=== PATIENT | male | born 1945 | race Hispanic/Latino ===

== ENCOUNTER 2017-10-04 11:22 | Inpatient (IN) | payer MEDICARE, BC ==
[2017-10-04 11:37] VITALS: BMI 35.9
--- NOTE | 2017-10-04 12:36 | ED PDOC ---
HPI: Trauma/Fall - HPI Time Seen by Provider: 10/04/17 11:48 Chief Complaint (Nursing): Trauma Chief Complaint (Provider): Trauma History Per: Patient History/Exam Limitations: no limitations Onset/Duration Of Symptoms: Days (x today) Additional Complaint(s): Huy is a 72 year old male who presents to the emergency department for medical evaluation s/p falling when walking to drug store. States he does not recall event of the fall, but remembers everything else. Patient lives with where found shoes on the living area and looked home and saw blood in the eyebrow area. Has bump on his back of his head. Denies any antecedent, headache, blurry vision, speech difficulty, focal difficulty upper and lower extremity, chest pain or shortness of breath. PMD: Provider TBD NIHSS Stroke Scale - Date/Time Evaluation Performed When Was NIHSS Performed: Baseline - How Severe is the Stroke Level of Consciousness: 0=Alert LOC to Questions: 0=Both comments correct Best Gaze: 0=Normal Visual: 0=No visual loss Facial: 0=Normal Motor Arm - Left: 0=No drift Motor Arm - Right: 0=No drift Motor Leg - Left: 0=No drift Motor Leg - Right: 0=No drift Limb Ataxia: 0=Absent Sensory: 0=Normal Best Language: 0=No aphasia Dysarthia: 0=Normal articulation Extinction & Inattention (Neglect): 0=Normal, no object Severity Of Stroke: 0 = No Stroke Past Medical History Reviewed: Historical Data, Nursing Documentation, Vital Signs Vital Signs: Last Vital Signs Temp 97.7 F 10/04/17 11:38 Pulse 71 10/04/17 11:38 Resp 20 10/04/17 11:38 BP 139/75 10/04/17 11:38 Pulse Ox 96 10/04/17 11:38 - Medical History PMH: HTN, Hypercholesterolemia, Hyperlipidemia - Surgical History Surgical History: CABG - Family History Family History: States: No Known Family Hx - Home Medications Home Medications: Ambulatory Orders Medication Instructions Recorded Aspirin [Ecotrin] 81 mg PO DAILY 10/04/17 Carvedilol [Coreg] 25 mg PO DAILY 10/04/17 Clopidogrel [Plavix] 75 mg PO DAILY 10/04/17 Rosuvastatin Calcium [Crestor] 10 mg PO DAILY 10/04/17 amLODIPine [Norvasc] 5 mg PO DAILY 10/04/17 - Allergies Allergies/Adverse Reactions: Allergies Allergy/AdvReac Type Severity Reaction Status Date / Time No Known Allergies Allergy Verified 10/04/17 11:52 Review of Systems ROS Statement: Except As Marked, All Systems Reviewed And Found Negative Skin: Positive for: Other (Abrasion on forehead between eyebrow, small hematoma posterior in the occipital scalp) Physical Exam - Reviewed Nursing Documentation Reviewed: Yes Vital Signs Reviewed: Yes - Physical Exam Eye Exam: Positive for: PERRL Neck: Positive for: Supple Cardiovascular/Chest: Positive for: Regular Rate, Rhythm (Normal s1 and s2) Respiratory: Positive for: Normal Breath Sounds. Negative for: Respiratory Distress Gastrointestinal/Abdominal: Positive for: Soft, Distended. Negative for: Tenderness Extremity: Positive for: Normal ROM (FROM) Neurologic/Psych: Positive for: Alert, Oriented, Other (Speech is normal). Negative for: Motor/Sensory Deficits - Laboratory Results Result Diagrams: 10/04/17 12:50 10/04/17 12:50 - ECG O2 Sat by Pulse Oximetry: 96 (RA) Medical Decision Making Medical Decision Making: Time: 12:11 Impression(s): Syncope, Coronary Artery Disease, High Cholesterol Plan: - CT Head without Contrast - EKG - Alcohol Serum - CMP - Troponin I - CBC - Partial Thromboplastin Time - Prothrombin Time - Chest X-Ray - Glucose, Blood, POC Will be admitted for observation due to his extensive past medical history Scribe Attestation: Documented by Emmanuel Romero, acting as a scribe for Cyndee Mata MD Provider Scribe Attestation: All medical record entries made by the Scribe were at my direction and personally dictated by me. I have reviewed the chart and agree that the record accurately reflects my personal performance of the history, physical exam, medical decision making, and the department course for this patient. I have also personally directed, reviewed, and agree with the discharge instructions and disposition. 2.30p - patient has been stable. Given the history of multiple coronary stent, hypertension, and hyperlipidemia, patient should be admitted for further evaluation. Disposition - Clinical Impression Clinical Impression: Syncope - Patient ED Disposition Is Patient to be Admitted: Yes Doctor Will See Patient In The: Hospital Counseled Patient/Family Regarding: Diagnosis, Need For Followup - Disposition Disposition: Transfer of Care Disposition Time: 14:15 Condition: STABLE Forms: [employer] (Thai) - Pt Status Changed To: Hospital Disposition Of: Observation - POA Present On Arrival: None
[2017-10-04 13:04] LABS: BASO % 0.5 % (0.0-2.0); EOS # 0.1 K/uL (0.0-0.7); EOS % 1.5 % (0.0-4.0); HEMOGLOBIN 16.4 g/dL (12.0-18.0); LYMPH # 1.7 K/uL (1.0-4.3); MEAN CELL VOLUME 87.7 fl (80.0-94.0); MEAN CORPUSCULAR HEMOGLOBIN 28.8 pg (27.0-31.0); MEAN CORPUSCULAR HGB CONC 32.8 g/dL (33.0-37.0); MEAN PLATELET VOLUME 8.8 fl (7.2-11.7); MONO # 0.8 K/uL (0.0-0.8); MONO % 9.4 % (0.0-10.0); NEUT # 6.3 K/uL (1.8-7.0); NEUT % 69.6 % (50.0-75.0); NRBC % 0.1 % (0.0-0.0); RBC 5.68 Mil/uL (4.40-5.90); RED CELL DISTRIBUTION WIDTH 15.1 % (11.5-14.5)
[2017-10-04 13:13] LABS: PARTIAL THROMBOPLASTIN TIME 33.3 Seconds (25.6-37.1)
--- NOTE | 2017-10-04 13:13 | CT ---
PROCEDURE: CT HEAD WITHOUT CONTRAST. HISTORY: syncope COMPARISON: None available. TECHNIQUE: Axial computed tomography images were obtained through the head/brain without intravenous contrast. Radiation dose: Total exam DLP = 1207 mGy-cm. This CT exam was performed using one or more of the following dose reduction techniques: Automated exposure control, adjustment of the mA and/or kV according to patient size, and/or use of iterative reconstruction technique. FINDINGS: HEMORRHAGE: No intracranial hemorrhage BRAIN: No mass effect or edema. No atrophy or chronic microvascular ischemic changes. VENTRICLES: Unremarkable. No hydrocephalus. CALVARIUM: Unremarkable. PARANASAL SINUSES: Unremarkable as visualized. No significant inflammatory changes. MASTOID AIR CELLS: Unremarkable as visualized. No inflammatory changes. OTHER FINDINGS: At the vertex, 19 x 16 x 8 mm well-circumscribed slightly hyperdense focus in the scalp is suggested -Hounsfield units are between 40 and 50 - residual hematoma here is 1 consideration. Other soft tissue mass is not excluded. No marked inflammation or induration of the surrounding subcutaneous fat appreciated. Correlate clinically with any prior trauma and correlate with physical exam here Atherosclerotic vascular calcifications vertebrobasilar and supraclinoid internal carotid arteries IMPRESSION: No intracranial hemorrhage or mass effect. Vertex 19 x 16 x 8 mm well-circumscribed slightly hyperdense focus in the scalp is suggested -Hounsfield units are between 40 and 50 - residual hematoma here is 1 consideration. Other soft tissue mass is not excluded. No marked inflammation or induration of the surrounding subcutaneous fat appreciated. Correlate clinically with any prior trauma and correlate with physical exam here
[2017-10-04 13:16] LABS: ALB/GLOB RATIO 1.5 (1.0-2.1); ALBUMIN 4.6 g/dL (3.5-5.0); ALT/SGPT 39 U/L (21-72); AST/SGOT 24 U/L (17-59); BLOOD UREA NITROGEN 19 mg/dl (9-20); CALCIUM 9.5 mg/dL (8.4-10.2); GFR AFRICAN-AMERICAN > 60; GFR NON-AFRICAN AMERICAN > 60
--- NOTE | 2017-10-04 13:50 | RAD ---
PROCEDURE: CHEST RADIOGRAPH, 1 VIEW HISTORY: Syncope COMPARISON: None available. FINDINGS: LUNGS: The lungs are well inflated. There is right basilar atelectasis. No focal consolidation. PLEURA: No pneumothorax or pleural fluid seen. CARDIOVASCULAR: Normal. OSSEOUS STRUCTURES: No significant abnormalities. VISUALIZED UPPER ABDOMEN: Normal. OTHER FINDINGS: None. IMPRESSION: No active pulmonary disease.
--- NOTE | 2017-10-05 08:36 | CARD ---
APPROVED REPORT EKG Measurement Heart [id number] <Conclusion> Normal sinus rhythm Minimal voltage criteria for LVH, may be normal variant Borderline ECG
[2017-10-05] MEDS ORDERED: Patient's Own Med (Rosuvastatin Calcium [Crestor] 10 MG) PO SCH (09:00)
--- NOTE | 2017-10-05 09:04 | CP.PCM.HP ---
History of Present Illness - History of Present Illness History of Present Illness: 72 yr old M presented to ED with complaint of a "bump to his head" after he slipped and fell on ice when walking to the drug store. Patient reports that when he arrived at home he remembered the events surrounding the fall but not actually falling, his became concerned and so he came to the ED. PMHx includes CAD s/p CABG and 1 stent 10 yrs ago, HTN, HLD and hypercholesterolemia. Denies chest pain, headache, dizziness, syncope, weakness , nausea, vomiting or disequilibrium. PMD: Dr. Caldera PMHx: CAD s/p CABG and 1 stent 10 yrs ago, HTN, HLD and hypercholesterolemia SurgHx: CABG -1 stent FMHx: noncontributory SocHx: denies smoking, alcohol or drugs Medications: see medication reconciliation Allergies: NKDA Present on Admission - Present on Admission Any Indicators Present on Admission: No History of DVT/PE: No History of Uncontrolled Diabetes: No Urinary Catheter: No Decubitus Ulcer Present: No History Surgical Site Infection Following: None Review of Systems - Review of Systems All systems: reviewed and no additional remarkable complaints except (for what is mentioned in the HPI) - Constitutional Constitutional: absent: Chills, Headache - EENT Eyes: absent: Blurred Vision, Change in Vision Ears: absent: Disequilibrium, Dizziness Nose/Mouth/Throat: absent: Nasal Congestion, Nasal Discharge - Cardiovascular Cardiovascular: absent: Chest Pain, Palpitations - Respiratory Respiratory: absent: Cough, Hemoptysis - Gastrointestinal Gastrointestinal: absent: Abdominal Pain, Diarrhea - Genitourinary Genitourinary: absent: Difficulty Urinating, Dysuria - Musculoskeletal Musculoskeletal: absent: Arthralgias, Myalgias - Neurological Neurological: absent: Disequilibrium, Dizziness, Weakness - Hematologic/Lymphatic Hematologic: absent: Easy Bleeding, Easy Bruising Past Patient History - Past Medical History & Family History Past Medical History?: Yes - Past Social History Smoking Status: Never Smoked - CARDIAC Hx Hypercholesterolemia: Yes Hx Hypertension: Yes - PULMONARY Hx Respiratory Disorders: No - NEUROLOGICAL Hx Neurological Disorder: No - MUSCULOSKELETAL/RHEUMATOLOGICAL Hx Falls: No - PSYCHIATRIC Hx Substance Use: No - SURGICAL HISTORY Hx Coronary Artery Bypass Graft: Yes - ANESTHESIA Hx Anesthesia: Yes Hx Anesthesia Reactions: No Meds Allergies/Adverse Reactions: Allergies Allergy/AdvReac Type Severity Reaction Status Date / Time No Known Allergies Allergy Verified 10/04/17 11:52 Physical Exam - Constitutional Appears: No Acute Distress - Head Exam Additional comments: left occipital scalp swelling and bruising 2 x 3 cm-nontender, no laceration, no discharge; abrasion at glabella - Eye Exam Eye Exam: EOMI - ENT Exam ENT Exam: Mucous Membranes Moist - Neck Exam Neck exam: Positive for: Full Rom. Negative for: Lymphadenopathy - Respiratory Exam Respiratory Exam: Clear to Auscultation Bilateral, NORMAL BREATHING PATTERN - Cardiovascular Exam Cardiovascular Exam: REGULAR RHYTHM, +S1, +S2 - GI/Abdominal Exam GI & Abdominal Exam: Normal Bowel Sounds, Soft (obese) - Extremities Exam Extremities exam: Positive for: full ROM. Negative for: pedal edema - Neurological Exam Neurological exam: Alert, CN II-XII Intact, Oriented x3 - Psychiatric Exam Psychiatric exam: Normal Affect, Normal Mood - Skin Skin Exam: Dry, Intact, Warm Results - Vital Signs Recent Vital Signs: Last Vital Signs Temp 98 F 10/05/17 05:00 Pulse 71 10/05/17 05:00 Resp 18 10/05/17 05:00 BP 155/91 H 10/05/17 05:00 Pulse Ox 94 L 10/05/17 05:00 - Labs Result Diagrams: 10/04/17 12:50 10/04/17 12:50 Labs: Laboratory Results - last 24 hr 10/04/17 10/04/17 10/04/17 12:27 12:50 12:50 WBC 9.0 RBC 5.68 Hgb 16.4 Hct 49.8 MCV 87.7 MCH 28.8 MCHC 32.8 L RDW 15.1 H Plt Count 129 L MPV 8.8 Neut % (Auto) 69.6 Lymph % (Auto) 19.0 L Knott % (Auto) 9.4 Eos % (Auto) 1.5 Baso % (Auto) 0.5 Neut # 6.3 Lymph # 1.7 Knott # 0.8 Eos # 0.1 Baso # 0.0 PT INR APTT Sodium 141 Potassium 4.3 Chloride 108 H Carbon Dioxide 23 Anion Gap 14 BUN 19 Creatinine 0.9 Est GFR ( Amer) > 60 Est GFR (Non-Af Amer) > 60 POC Glucose (mg/dL) 111 H Random Glucose 122 H Calcium 9.5 Total Bilirubin 0.7 AST 24 ALT 39 Alkaline Phosphatase 67 Troponin I < 0.0120 Total Protein 7.7 Albumin 4.6 Globulin 3.1 Albumin/Globulin Ratio 1.5 Alcohol, Quantitative < 10 10/04/17 12:50 WBC RBC Hgb Hct MCV MCH MCHC RDW Plt Count MPV Neut % (Auto) Lymph % (Auto) Knott % (Auto) Eos % (Auto) Baso % (Auto) Neut # Lymph # Knott # Eos # Baso # PT 11.0 INR 1.0 APTT 33.3 Sodium Potassium Chloride Carbon Dioxide Anion Gap BUN Creatinine Est GFR ( Amer) Est GFR (Non-Af Amer) POC Glucose (mg/dL) Random Glucose Calcium Total Bilirubin AST ALT Alkaline Phosphatase Troponin I Total Protein Albumin Globulin Albumin/Globulin Ratio Alcohol, Quantitative Assessment & Plan - Assessment and Plan (Free Text) Assessment: 72 yr old M admitted for head trauma s/p fall after slipping on ice. 1. Head trauma Plan: 72 yr old M admitted for head trauma s/p fall after slipping on ice with inability to recall event of mechanical fall. 1. Head trauma -acute likely secondary to s/p mechanical fall vs syncope -CT head: no intracranial hemorrhage or mass effect, possible residual hematoma at vertex -Brain MRI: trace temporo-occipital subdural hematoma, no acute or subacute infarction, mild biparietal bicipital scalp/subgleal hematoma noted, left greater than right -Head MRA: unremarkable -admit to telemetry, neuro checks -Neurosurgery consult appreciated: will follow recommendations: hold plavix and ASA, repeat CT head in AM -cardiology consult appreciated: will follow recommendations 2. HTN -chronic, controlled -continue home medications 3. DVT prophylaxis -SCD's for now, pt is s/o mechanical fall - Date & Time Date: 10/05/17 Time: 10:10
--- NOTE | 2017-10-05 10:14 | CP.PCM.CON ---
History of Present Illness - History of Present Illness History of Present Illness: THE PATIENT IS A 72 YEAR OLD MALE WHO WAS ADMITTED AFTER SLIPPING ON THE ICE AND HITTING HIS HEAD. HE HAD A HISTORY OF CAD WHEN HE HAD CHEST PAIN ABOUT 10 YEARS AGO AND HAD AN ABNORMAL STRESS TEST. HE THEN HAD A CARDIAC CATH AND A CORONARY STENT INSERTION. HE HAS BEEN CHEST PAIN FREE AND STABLE FROM THE CARDIAC VIEWPOINT SINCE THEN WITH A NUCLEAR STRESS TEST YEARLY AND THEY HAVE BEEN NEGATIVE FOR ISCHEMIA. CARDIOLOGY WAS ASKED TO SEE HIM ON THIS ADMISSION. HE DENIES CHEST PAIN, PALPITATIONS OR SOB PRIOR TO THE FALL. HE COULDN'T REMEMBER EXACTLY WHAT HAPPENED AT FIRST BUT NOW CLEARLY STATES THAT HE DID NOT FALL BECAUSE OF A LOC, BUT INSTEAD FELL BECAUSE OF SLIPPING ON THE ICE. Past Patient History - Past Medical History & Family History Past Medical History?: Yes - Past Social History Smoking Status: Never Smoked - CARDIAC Hx Hypercholesterolemia: Yes Hx Hypertension: Yes - PULMONARY Hx Respiratory Disorders: No - NEUROLOGICAL Hx Neurological Disorder: No - MUSCULOSKELETAL/RHEUMATOLOGICAL Hx Falls: No - PSYCHIATRIC Hx Substance Use: No - SURGICAL HISTORY Hx Coronary Artery Bypass Graft: Yes - ANESTHESIA Hx Anesthesia: Yes Hx Anesthesia Reactions: No Meds Allergies/Adverse Reactions: Allergies Allergy/AdvReac Type Severity Reaction Status Date / Time No Known Allergies Allergy Verified 10/04/17 11:52 - Medications Medications: Current Medications Amlodipine Besylate (Norvasc) 5 mg PO DAILY GATO Aspirin (Ecotrin) 81 mg PO DAILY GATO Atorvastatin Calcium (Lipitor) 20 mg PO DAILY GATO Carvedilol (Coreg) 25 mg PO DAILY GATO Clopidogrel Bisulfate (Plavix) 75 mg PO DAILY GATO Physical Exam - Respiratory Exam Respiratory Exam: Clear to Auscultation Bilateral - Cardiovascular Exam Cardiovascular Exam: REGULAR RHYTHM, +S1, +S2 - Extremities Exam Additional comments: NO SIGNIFICANT LE EDEMA - Additional Findings Additional findings: EKG NSR EKG MONITORING NSR WITHOUT ECTOPY TROPONIN NEGATIVE CT OF HEAD REPORT REVIEWED Results - Vital Signs Recent Vital Signs: Last Vital Signs Temp 97.1 F L 10/05/17 08:00 Pulse 76 10/05/17 08:00 Resp 18 10/05/17 08:00 BP 152/84 H 10/05/17 08:00 Pulse Ox 95 10/05/17 08:00 - Labs Result Diagrams: 10/04/17 12:50 10/04/17 12:50 Labs: Laboratory Results - last 24 hr 10/04/17 10/04/17 10/04/17 12:27 12:50 12:50 WBC 9.0 RBC 5.68 Hgb 16.4 Hct 49.8 MCV 87.7 MCH 28.8 MCHC 32.8 L RDW 15.1 H Plt Count 129 L MPV 8.8 Neut % (Auto) 69.6 Lymph % (Auto) 19.0 L Hendry % (Auto) 9.4 Eos % (Auto) 1.5 Baso % (Auto) 0.5 Neut # 6.3 Lymph # 1.7 Hendry # 0.8 Eos # 0.1 Baso # 0.0 PT INR APTT Sodium 141 Potassium 4.3 Chloride 108 H Carbon Dioxide 23 Anion Gap 14 BUN 19 Creatinine 0.9 Est GFR ( Amer) > 60 Est GFR (Non-Af Amer) > 60 POC Glucose (mg/dL) 111 H Random Glucose 122 H Calcium 9.5 Total Bilirubin 0.7 AST 24 ALT 39 Alkaline Phosphatase 67 Troponin I < 0.0120 Total Protein 7.7 Albumin 4.6 Globulin 3.1 Albumin/Globulin Ratio 1.5 Alcohol, Quantitative < 10 10/04/17 12:50 WBC RBC Hgb Hct MCV MCH MCHC RDW Plt Count MPV Neut % (Auto) Lymph % (Auto) Hendry % (Auto) Eos % (Auto) Baso % (Auto) Neut # Lymph # Hendry # Eos # Baso # PT 11.0 INR 1.0 APTT 33.3 Sodium Potassium Chloride Carbon Dioxide Anion Gap BUN Creatinine Est GFR ( Amer) Est GFR (Non-Af Amer) POC Glucose (mg/dL) Random Glucose Calcium Total Bilirubin AST ALT Alkaline Phosphatase Troponin I Total Protein Albumin Globulin Albumin/Globulin Ratio Alcohol, Quantitative Assessment & Plan - Assessment and Plan (Free Text) Assessment: FALL FROM SLIPPING ON THE ICE CAD BUT WITH STABLE CARDIAC STATUS AT THE PRESENT TIME Plan: THE PATIENT WAS ADMITTED TO 4N ON TELEMETRY CONTINUE CARVEDILOL, AMLODIPINE, ATORVASTATIN, ASPIRIN AND CLOPIDOGREL THE PATIENT CAN BE DISCHARGED FROM THE CARDIAC VIEWPOINT-HE HAD AN APPOINTMENT SCHEDULED WITH ME IN THE OFFICE THIS AFTERNOON AND HE WAS TOLD TO RESCHEDULE AN APPOINTMENT WITH ONE TO TWO WEEKS TO SEE HOW HE IS DOING
--- NOTE | 2017-10-05 11:51 | MRI ---
PROCEDURE: MRI BRAIN WITHOUT CONTRAST HISTORY: s/p fall COMPARISON: Head CT without contrast dated 10/04/2017. TECHNIQUE: Multiplanar, multisequence MR images of the brain were obtained without intravenous contrast enhancement. FINDINGS: HEMORRHAGE: Trace left temporooccipital subdural hematomas question in the lateral periphery. This is best seen in the FLAIR acquisition. No parenchymal hemorrhage is identified and there is no large hemorrhagic collection throughout the intracranial space. DWI: No evidence of an acute or early subacute infarction. BRAIN PARENCHYMA: Good corticomedullary differentiation is seen. Diffuse expansion of the ventriculosulcal and cisternal spaces is appreciated with white matter lucency compatible with diffuse cerebral atrophy and chronic microangiopathy. The midline brain anatomy appears grossly nonfocal as imaged. There is no mass effect throughout. VENTRICLES: Unremarkable. No hydrocephalus. CRANIUM: Unremarkable. Head there however the, there is a mild biparietal box simple subgaleal/scalp hematoma identified, left greater than right. ORBITS: Grossly unremarkable. PARANASAL SINUSES/MASTOIDS: Clear VASCULAR SYSTEM: Skull base flow voids intact. OTHER FINDINGS: None. IMPRESSION: Trace left temporooccipital subdural hematoma. No acute or subacute brain infarction identified. Mild age related neuro degenerative changes are identified. Follow-up head CT is advised. Mild biparietal bicipital scalp/subgaleal hematoma noted, left greater than right.
--- NOTE | 2017-10-05 11:55 | MRI ---
PROCEDURE: Magnetic Resonance Angiography Brain HISTORY: s/p fall COMPARISON: None available. TECHNIQUE: 3D time of flight MR angiography of the intracranial arteries was performed. Rotating maximum intensity projection images were generated. FINDINGS: INTERNAL CAROTID ARTERIES: Unremarkable. The skull base, petrous, cavernous and supraclinoid segments are bilaterally widely patient. ANTERIOR CEREBRAL ARTERIES: Unremarkable. A1 and A2 segments are widely patent. Smaller distal branches unremarkable, as visualized. MIDDLE CEREBRAL ARTERIES: Unremarkable. M1 and M2 segments are widely patent. Perisylvian branches grossly symmetric. POSTERIOR CIRCULATION: Basilar Artery: Unremarkable. Distal Vertebral Arteries: Unremarkable. Posterior Cerebral Arteries: A small infundibulum is noted at the proximal right posterior artery related to the junction with the right posterior communicating artery. There is a mild stenosis of the proximal left [employer] which is over accentuated in the 3D reconstructed datasets appearing severe there but only mild in the source images. Posterior Inferior Cerebellar Arteries: Unremarkable. ANEURYSM/ VASCULAR MALFORMATIONS: None identified. OTHER FINDINGS: None. IMPRESSION: Unremarkable MR angiography of the brain.
--- NOTE | 2017-10-05 12:39 | US ---
PROCEDURE: Duplex ultrasound of the carotid and vertebral arteries. HISTORY: syncope COMPARISON: None available. TECHNIQUE: Grayscale and duplex Doppler evaluation of the cervical carotid and vertebral arteries were performed. The common carotid, carotid bifurcations and cervical ICA and proximal ECA were evaluated. The vertebral arteries were evaluated for gross patency and direction. FINDINGS: RIGHT CAROTID ARTERIES: Common Carotid Artery: Calcific plaque. Maximal flow velocity of 81.6 cm/s. Carotid Bifurcation: Calcific plaque. Internal Carotid Artery:Calcific plaque. Maximal flow velocity of 126.9 cm/s. External Carotid Artery (proximal branches): Calcific plaque. Maximal flow velocity of 120.8 cm/s. ICA/CCA Ratio: 1.6 LEFT CAROTID ARTERIES: Common Carotid Artery: Calcific plaque. Maximal flow velocity of 73.7 cm/s. Carotid Bifurcation: Calcific plaque. Internal Carotid Artery:Calcific plaque. Maximal flow velocity of 122.2 cm/s. External Carotid Artery (proximal branches): Calcific plaque. Maximal flow velocity of 140.8 cm/s. ICA/CCA Ratio: 1.7 VERTEBRAL ARTERIES: Right Vertebral Artery: Patent. Antegrade flow. Left Vertebral Artery: Patent. Antegrade flow. OTHER FINDINGS: None. IMPRESSION: No hemodynamically significant stenosis of the internal carotid arteries, bilaterally.
--- NOTE | 2017-10-05 20:15 | CARD ---
APPROVED REPORT EXAM: Two-dimensional and M-mode echocardiogram with Doppler and color Doppler. Other Information Quality : FairRhythm : INDICATION Syncope 2D DIMENSIONS IVSd1.79 (0.7-1.1cm)LVDd4.07 (3.9-5.9cm) LVOT Diameter2.00 (1.8-2.4cm)PWd0.98 (0.7-1.1cm) IVSs2.09 (0.8-1.2cm)LVDs3.06 (2.5-4.0cm) FS (%) 24.9 %PWs1.49 (0.8-1.2cm) LVEF (%)45.0 (>50%) M-Mode DIMENSIONS Left Atrium (MM)4.42 (2.5-4.0cm)Aortic Root3.02 (2.2-3.7cm) Aortic Cusp Exc.1.40 (1.5-2.0cm) Aortic Valve AoV Peak Lyknvecr037.3cm/sAoV VTI59.2cmAO Peak GR.15mmHg LVOT Peak Wuyyzymw15.0cm/sLVOT VTI21.59cmAO Mean GR.19mmHg Mitral Valve MV E Syevcumx30.3cm/sMV A Knntiuxi48.4cm/sE/A ratio0.8 TDI Lateral E' Peak V8.64cm/sMedial E' Peak V7.41cm/sE/Lateral E'9.4 E/Medial E'11.0 LEFT VENTRICLE The left ventricle is normal in size. There is normal left ventricular wall thickness. The left ventricular function is normal. The left ventricular ejection fraction is - 60%. There is normal LV segmental wall motion. Transmitral Doppler flow pattern is Grade I-abnormal relaxation pattern. No left ventricle thrombus noted on this study. There is no ventricular septal defect visualized. There is no left ventricular aneurysm. There is no mass noted in the left ventricle. RIGHT VENTRICLE The right ventricle is normal size. There is normal right ventricular wall thickness. The right ventricular systolic function is normal. ATRIA The left atrium is mildly dilated. There is no thrombus suspected in the left atrium. The right atrium size is normal. The interatrial septum is intact with no evidence for an atrial septal defect. AORTIC VALVE The aortic valve is moderately calcified. No aortic regurgitation is present. There is mild to moderate valvular aortic stenosis visually. Calculated aortic valve area is 1.10 cm2 with maximum pressure gradient of 28 mmHg and mean pressure gradient of 19.6 mmHg. MITRAL VALVE The mitral valve is normal in structure. Mitral annular calcification is mild. There is no evidence of mitral valve prolapse. There is no mitral valve stenosis. Mitral regurgitation is trace. TRICUSPID VALVE The tricuspid valve is normal in structure. There is no tricuspid valve regurgitation noted. There is no tricuspid valve prolapse or vegetation. There is no tricuspid valve stenosis. PULMONIC VALVE The pulmonary valve is normal in structure. There is no pulmonic valvular regurgitation. GREAT VESSELS The aortic root is normal in size. The IVC was not well visualized. PERICARDIAL EFFUSION The pericardium appears normal. There is no pleural effusion. <Conclusion> The study is only of fair quality. The left ventricle is normal in size and wall thickness. The left ventricular function is normal. The left ventricular ejection fraction is - 60%. The left atrium is mildly dilated. The aortic valve is - moderately calcified and appears mildly to moderately stenotic visually. The mitral valve and tricuspid valves are normal. There is trace mitral regurgitation.
--- NOTE | 2017-10-06 08:08 | CP.PCM.CON ---
History of Present Illness - History of Present Illness History of Present Illness: NO NEW COMPLAINTS Past Patient History - Past Medical History & Family History Past Medical History?: Yes - Past Social History Smoking Status: Never Smoked - CARDIAC Hx Hypercholesterolemia: Yes Hx Hypertension: Yes - PULMONARY Hx Respiratory Disorders: No - NEUROLOGICAL Hx Neurological Disorder: No - MUSCULOSKELETAL/RHEUMATOLOGICAL Hx Falls: No - PSYCHIATRIC Hx Substance Use: No - SURGICAL HISTORY Hx Coronary Artery Bypass Graft: Yes - ANESTHESIA Hx Anesthesia: Yes Hx Anesthesia Reactions: No Meds Allergies/Adverse Reactions: Allergies Allergy/AdvReac Type Severity Reaction Status Date / Time No Known Allergies Allergy Verified 10/04/17 11:52 - Medications Medications: Current Medications Amlodipine Besylate (Norvasc) 5 mg PO DAILY [facility] Last Admin: 10/05/17 13:41 Dose: 5 mg Atorvastatin Calcium (Lipitor) 20 mg PO DAILY [facility] Last Admin: 10/05/17 14:28 Dose: 20 mg Carvedilol (Coreg) 25 mg PO DAILY [facility] Last Admin: 10/05/17 14:28 Dose: 25 mg Physical Exam - Respiratory Exam Respiratory Exam: Clear to Auscultation Bilateral - Cardiovascular Exam Cardiovascular Exam: REGULAR RHYTHM, +S1, +S2 - Additional Findings Additional findings: 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 WITH TRACE SUBDURAL HEMATOMA BRAIN MRI AND CAROTID US WITHOUT ANY SIGNIFICANT LESIONS ECHOCARDIOGRAM, GOOD LV SYSTOLIC FUNCTION, AV CALCIFICATION WITH MILD TO MODERATE VISUALLY PATIENT SEEN BY NEUROLOGY YESTERDAY Results - Vital Signs Recent Vital Signs: Last Vital Signs Temp 97.4 F L 10/06/17 05:59 Pulse 68 10/06/17 05:59 Resp 18 10/06/17 05:59 BP 130/79 10/06/17 05:59 Pulse Ox 97 10/06/17 05:59 - Labs Result Diagrams: 10/04/17 12:50 10/04/17 12:50 Labs: Laboratory Results - last 24 hr 10/05/17 10/05/17 09:15 14:51 Troponin I < 0.0120 < 0.0120 Assessment & Plan - Assessment and Plan (Free Text) Assessment: FALL WITH HEAD TRAUMA AND PROBABLE CONCUSSION AND SMALL SUBDURAL HEMATOMA CAD HISTORY HYPERTENSION MILD TO MODERATE Plan: CONTINUE CARVEDILOL, AMLODIPINE AND ATORVASTATIN HOLD ASPIRIN AND CLOPIDOGREL FOR NOW DUE TO HEAD TRAUMA WITH SUBDURAL HEMATOMA FOR REPEAT CAT SCAN TODAY OK TO DISCHARGE PATIENT FROM CARDIAC [facility]-PATIENT AND INSTRUCTED TO CALL MY OFFICE FOR AN APPOINTMENT IN ABOUT TWO WEEKS
[2017-10-06 08:39] VITALS: BP 148/83; PULSE 71; RESP 20; TEMP 97.3; O2SAT 95
--- NOTE | 2017-10-06 12:12 | CP.PCM.PN ---
<Anthony Rod - Last Filed: 10/06/17 12:05> Subjective - Date & Time of Evaluation Date of Evaluation: 10/06/17 Time of Evaluation: 12:05 - Subjective Subjective: Mr. Brownlee was seen and examined at the bedside. He is alert, oriented in all spheres. He denies any headache, dizziness, blurred vision, lightheadedness, nausea, or vomiting. He has a healing abrasion in between his eyebrows. He is able to answer all questions appropriately and follow simple commands. He is ambulating around his room and within the nursing unit with steady gait. MRi of the brain showed trace te,pooccipital subdural hematoma. No acute or subacute brain infarction identified. Mild age related neurodegenerative changes identified. Mild biparietal biciptal scalp/subgaleal hematoma noted. left is greater than the right. Suggest a repaet CT of the head without contrast.There was no untoward events overnight. Objective - Vital Signs/Intake and Output Vital Signs (last 24 hours): Temp Pulse Resp BP Pulse Ox 97.3 F L 71 20 148/83 95 10/06/17 09:00 10/06/17 09:49 10/06/17 09:00 10/06/17 09:49 10/06/17 09:00 - Medications Medications: Current Medications Amlodipine Besylate (Norvasc) 5 mg PO DAILY [facility] Last Admin: 10/06/17 09:49 Dose: 5 mg Atorvastatin Calcium (Lipitor) 20 mg PO DAILY [facility] Last Admin: 10/06/17 09:49 Dose: 20 mg Carvedilol (Coreg) 25 mg PO DAILY [facility] Last Admin: 10/06/17 09:48 Dose: 25 mg - Labs Labs: 10/04/17 12:50 10/04/17 12:50 PT 11.0 Seconds (9.8-13.1) 10/04/17 12:50 INR 1.0 (0.9-1.2) 10/04/17 12:50 APTT 33.3 Seconds (25.6-37.1) 10/04/17 12:50 - Constitutional Appears: No Acute Distress - Head Exam Head Exam: NORMAL INSPECTION - Eye Exam Pupil Exam: NORMAL ACCOMODATION, PERRL - Neurological Exam Neurological Exam: Alert, Awake, CN II-XII Intact, Normal Gait, Oriented x3 Neuro motor strength exam: Left Upper Extremity: 5, Right Upper Extremity: 5, Left Lower Extremity: 5, Right Lower Extremity: 5 Additional comments: he is able to answer questions and follow simple commands. Sensation remains intact. Assessment and Plan (1) Syncope Assessment & Plan: Case discussed with dr. Urena, continue all current medical, physical, and occupational therapies. If repeat CT of the head is stable, can be discharge home and follow up in the office with Dr. Urena in 2 weeks. Status: Acute <RomelBohilary - Last Filed: 10/06/17 12:45> Subjective - Subjective Subjective: EEG report: Mild frontal slowing, otherwise normal EEG. no subclinical or clinical seizures. no focal epileptiform discharges. Objective - Vital Signs/Intake and Output Vital Signs (last 24 hours): Temp Pulse Resp BP Pulse Ox 97.3 F L 71 20 148/83 95 10/06/17 09:00 10/06/17 09:49 10/06/17 09:00 10/06/17 09:49 10/06/17 09:00 - Medications Medications: Current Medications Amlodipine Besylate (Norvasc) 5 mg PO DAILY [facility] Last Admin: 10/06/17 09:49 Dose: 5 mg Atorvastatin Calcium (Lipitor) 20 mg PO DAILY [facility] Last Admin: 10/06/17 09:49 Dose: 20 mg Carvedilol (Coreg) 25 mg PO DAILY [facility] Last Admin: 10/06/17 09:48 Dose: 25 mg - Labs Labs: 10/04/17 12:50 10/04/17 12:50 PT 11.0 Seconds (9.8-13.1) 10/04/17 12:50 INR 1.0 (0.9-1.2) 10/04/17 12:50 APTT 33.3 Seconds (25.6-37.1) 10/04/17 12:50
--- NOTE | 2017-10-06 13:20 | CT ---
PROCEDURE: CT HEAD WITHOUT CONTRAST. HISTORY: temporo-occipitalsubdural hematoma s/p head trauma COMPARISON: October 05, 2017. And MRI brain. Summary of findings on the comparison examination: Trace left temporooccipital subdural hematoma. 10/04/2017 CT head TECHNIQUE: Axial computed tomography images were obtained through the head/brain without intravenous contrast. Radiation dose: Total exam DLP = 1351.27 mGy-cm. This CT exam was performed using one or more of the following dose reduction techniques: Automated exposure control, adjustment of the mA and/or kV according to patient size, and/or use of iterative reconstruction technique. FINDINGS: HEMORRHAGE: No intracranial hemorrhage. BRAIN: No mass effect or edema. No atrophy or chronic microvascular ischemic changes. VENTRICLES: Unremarkable. No hydrocephalus. CALVARIUM: Unremarkable. PARANASAL SINUSES: Unremarkable as visualized. No significant inflammatory changes. MASTOID AIR CELLS: Unremarkable as visualized. No inflammatory changes. OTHER FINDINGS: Stable scalp hematoma posterior parietal region without underlying calvarial or intracranial abnormality. IMPRESSION: No acute intracranial abnormalities. No significant findings to account for the clinical presentation. No significant interval change compared to the prior examination(s).
--- NOTE | 2017-10-06 14:12 | CP.PCM.DIS ---
Provider - Provider Date of Admission: 10/05/17 15:47 Attending physician: Joey Morales MD Primary care physician: Dr. Caldera Consults: Dr. Urena- neurosurgery, Dr. Kelly-cardiology Time Spent in preparation of Discharge (in minutes): 30 Diagnosis - Discharge Diagnosis (1) Subdural hematoma, post-traumatic Status: Acute Priority: Low Hospital Course - Lab Results Lab Results: Most Recent Lab Values WBC 9.0 K/uL (4.8-10.8) 10/04/17 12:50 RBC 5.68 Mil/uL (4.40-5.90) 10/04/17 12:50 Hgb 16.4 g/dL (12.0-18.0) 10/04/17 12:50 Hct 49.8 % (35.0-51.0) 10/04/17 12:50 MCV 87.7 fl (80.0-94.0) 10/04/17 12:50 MCH 28.8 pg (27.0-31.0) 10/04/17 12:50 MCHC 32.8 g/dL (33.0-37.0) L 10/04/17 12:50 RDW 15.1 % (11.5-14.5) H 10/04/17 12:50 Plt Count 129 K/uL (130-400) L 10/04/17 12:50 MPV 8.8 fl (7.2-11.7) 10/04/17 12:50 Neut % (Auto) 69.6 % (50.0-75.0) 10/04/17 12:50 Lymph % (Auto) 19.0 % (20.0-40.0) L 10/04/17 12:50 [place] % (Auto) 9.4 % (0.0-10.0) 10/04/17 12:50 Eos % (Auto) 1.5 % (0.0-4.0) 10/04/17 12:50 Baso % (Auto) 0.5 % (0.0-2.0) 10/04/17 12:50 Neut # 6.3 K/uL (1.8-7.0) 10/04/17 12:50 Lymph # 1.7 K/uL (1.0-4.3) 10/04/17 12:50 [place] # 0.8 K/uL (0.0-0.8) 10/04/17 12:50 Eos # 0.1 K/uL (0.0-0.7) 10/04/17 12:50 Baso # 0.0 K/uL (0.0-0.2) 10/04/17 12:50 PT 11.0 Seconds (9.8-13.1) 10/04/17 12:50 INR 1.0 (0.9-1.2) 10/04/17 12:50 APTT 33.3 Seconds (25.6-37.1) 10/04/17 12:50 Sodium 141 mmol/l (132-148) 10/04/17 12:50 Potassium 4.3 MMOL/L (3.6-5.0) 10/04/17 12:50 Chloride 108 mmol/L (98-107) H 10/04/17 12:50 Carbon Dioxide 23 mmol/L (22-30) 10/04/17 12:50 Anion Gap 14 (10-20) 10/04/17 12:50 BUN 19 mg/dl (9-20) 10/04/17 12:50 Creatinine 0.9 mg/dl (0.8-1.5) 10/04/17 12:50 Est GFR ( Amer) > 60 10/04/17 12:50 Est GFR (Non-Af Amer) > 60 10/04/17 12:50 POC Glucose (mg/dL) 111 mg/dL (65-110) H 10/04/17 12:27 Random Glucose 122 mg/dL (75-110) H 10/04/17 12:50 Calcium 9.5 mg/dL (8.4-10.2) 10/04/17 12:50 Total Bilirubin 0.7 mg/dl (0.2-1.3) 10/04/17 12:50 AST 24 U/L (17-59) 10/04/17 12:50 ALT 39 U/L (21-72) 10/04/17 12:50 Alkaline Phosphatase 67 U/L (38-126) 10/04/17 12:50 Troponin I < 0.0120 ng/mL (0.00-0.120) 10/05/17 14:51 Total Protein 7.7 G/DL (6.3-8.2) 10/04/17 12:50 Albumin 4.6 g/dL (3.5-5.0) 10/04/17 12:50 Globulin 3.1 gm/dL (2.2-3.9) 10/04/17 12:50 Albumin/Globulin Ratio 1.5 (1.0-2.1) 10/04/17 12:50 Alcohol, Quantitative < 10 mg/dl (0-10) 10/04/17 12:50 - Hospital Course Hospital Course: 72 yr old M admitted for evaluation s/p head trauma and found to have a subdural hematoma. Patient was evaluated by neurosurgery and cardiology. Repeat CT Head showed no acute intracranial abnormalities and no significant interval change compared to prior exam. Neurological exam benign and patient discharged with instructions to followup with PMD within 1 week. ER precautions reviewed. - Date & Time of H&P Date of H&P: 10/05/17 Time of H&P: 09:04 Discharge Exam - Head Exam Additional comments: left temporo-parietal 1x1 cm swelling and bruise-nontender - Eye Exam Eye Exam: EOMI - ENT Exam ENT Exam: Mucous Membranes Moist - Neck Exam Neck exam: Full Rom, Lymphadenopathy - Respiratory Exam Respiratory Exam: Clear to PA & Lateral, NORMAL BREATHING PATTERN - Cardiovascular Exam Cardiovascular Exam: REGULAR RHYTHM, +S1, +S2 - GI/Abdominal Exam GI & Abdominal Exam: Normal Bowel Sounds, Soft - Extremities Exam Extremities exam: full ROM - Neurological Exam Neurological exam: Alert, CN II-XII Intact, Oriented x3 - Psychiatric Exam Psychiatric exam: Normal Affect, Normal Mood - Skin Skin Exam: Dry, Normal Color, Warm Discharge Plan - Follow Up Plan Condition: STABLE Disposition: HOME/ ROUTINE Patient education suggested?: Yes Instructions: Subdural Hematoma (DC), Concussion (DC), Head Injury (DC) Additional Instructions: followup with PMD within 1 week. ER precautions reviewed Referrals: Abe Caldera MD [Family Provider] - Clinical Quality Measures - Date & Time of Discharge Summary Date of Discharge Summary: 10/06/17 Time of Discharge Summary: 14:18
== END 2017-10-06 16:16 | disposition home or self-care (01) | DRG 84 ==
LOC: H.ER 11:22 → H.ERHOLD 14:48 → H.TEL 21:35 → OBSVTOIN 10-05 15:47 → H.TEL 10-05 17:17
PROVIDERS: ADMIT Family Medicine; ATTEND Family Medicine
DX: S06.5X9A Traumatic subdural hemorrhage with loss of consciousness of unspecified duration, initial encounter (principal); I35.0 Nonrheumatic aortic (valve) stenosis; E78.00 Pure hypercholesterolemia, unspecified; I10 Essential (primary) hypertension; W00.0XXA Fall on same level due to ice and snow, initial encounter; E78.5 Hyperlipidemia, unspecified; I25.10 Atherosclerotic heart disease of native coronary artery without angina pectoris; Z95.1 Presence of aortocoronary bypass graft; Z95.5 Presence of coronary angioplasty implant and graft

== ENCOUNTER 2018-04-18 10:07 | Emergency (ER) | payer MEDICARE, BC ==
[2018-04-18 10:12] VITALS: BMI 33.8
[2018-04-18 10:13] VITALS: TEMP 98.4
--- NOTE | 2018-04-18 11:28 | ED PDOC ---
Lower Extremity Pain/Injury Time Seen by Provider: 04/18/18 10:34 Chief Complaint (Nursing): Lower Extremity Problem/Injury Chief Complaint (Provider): Lower Extremity Problem/Injury History Per: Patient History/Exam Limitations: no limitations Onset/Duration Of Symptoms: Days (2) Additional Complaint(s): 72 yeas old male with history of hypertension and hyperlipidemia presents to the ED with complaints of right hip pain onset 2 days after a twisting injury. Patient is able to ambulate. He reports experiencing bilateral leg pain for years. Patient denies any direct trauma, numbness or tingling. PMD: Joey Morales Past Medical History Reviewed: Historical Data, Nursing Documentation, Vital Signs Vital Signs: Last Vital Signs Temp 98.4 F 04/18/18 10:12 Pulse 84 04/18/18 10:12 Resp 17 04/18/18 10:12 BP 146/77 04/18/18 10:12 Pulse Ox 96 04/18/18 10:12 - Medical History PMH: HTN, Hypercholesterolemia, Hyperlipidemia - Surgical History Surgical History: CABG, Coronary Stent - Family History Family History: States: Unknown Family Hx - Social History Current smoker - smoking cessation education provided: No Alcohol: None - Home Medications Home Medications: Ambulatory Orders Medication Instructions Recorded Carvedilol [Coreg] 25 mg PO DAILY 10/04/17 Rosuvastatin Calcium [Crestor] 10 mg PO DAILY 10/04/17 amLODIPine [Norvasc] 5 mg PO DAILY 10/04/17 - Allergies Allergies/Adverse Reactions: Allergies Allergy/AdvReac Type Severity Reaction Status Date / Time No Known Allergies Allergy Verified 04/18/18 10:25 Review of Systems ROS Statement: Except As Marked, All Systems Reviewed And Found Negative Musculoskeletal: Positive for: Leg Pain (Right hip) Neurological: Negative for: Numbness, Other (Tingling ) Physical Exam - Reviewed Nursing Documentation Reviewed: Yes Vital Signs Reviewed: Yes - Physical Exam Appears: Positive for: Non-toxic, No Acute Distress Head Exam: Positive for: ATRAUMATIC, NORMOCEPHALIC Pulses-Dorsalis Pedis (L): 1+ Pulses-Dorsalis Pedis (R): 1+ Pulses-Femoral (R): 2+ (edema) Extremity: Positive for: Normal ROM (Full ), Tenderness (Right anterior lateral hip). Negative for: Calf Tenderness, Other (Erythema) Neurologic/Psych: Positive for: Alert, Oriented (x3) - ECG O2 Sat by Pulse Oximetry: 96 (RA) Pulse Ox Interpretation: Normal Medical Decision Making Medical Decision Making: Time: 1045 Initial Impression: Hip pain and chronic bilateral leg pain Initial Plan: --R Hip Rad --Duplex lower extremity vein bilat US 1152 Extremity US FINDINGS: COMMON FEMORAL VEIN: Right CFV: Unremarkable. Left CFV: Unremarkable. SUPERFICIAL FEMORAL VEIN: Right SFV: Unremarkable. Left SFV: Unremarkable. POPLITEAL VEIN: Right Popliteal: Unremarkable. Left Popliteal: Unremarkable. POSTERIOR TIBIAL VEIN: Right PTV: Unremarkable. Left PTV: Unremarkable. OTHER FINDINGS: There is a 10.5 x 6.7 x 1.9 cm ovoid anechoic mass in the medial aspect of the left distal thigh extending to just below the knee. IMPRESSION: No evidence of deep venous thrombosis. 10.5 x 6.7 x 1.9 cm cystic structure in the medial aspect of the left distal thigh extending to be lower than may represent fluid collection or chronic hematoma. Clinical correlation and follow-up is advised. If clinically indicated, correlation with MRI may be performed on a non emergent basis for further evaluation. 1154 Hip/Pelvis X-Ray FINDINGS: BONES: Bone alignment and mineralization are normal. There is no acute displaced fracture or bone destruction. JOINTS: Normal. SOFT TISSUES: There are multi lobular calcifications superior and lateral to the right greater trochanter. OTHER FINDINGS: Atherosclerotic vascular calcifications are present. IMPRESSION: No acute fracture or dislocation. Lobular calcifications superior and lateral to the right greater trochanter may represent Calcific tendinitis/ trochanteric bursitis. ----- Scribe Attestation: Documented by Judi Harris, acting as a scribe for Deborah Diaz MD. Provider Scribe Attestation: All medical record entries made by the Scribe were at my direction and personally dictated by me. I have reviewed the chart and agree that the record accurately reflects my personal performance of the history, physical exam, medical decision making, and the department course for this patient. I have also personally directed, reviewed, and agree with the discharge instructions and disposition. Disposition - Clinical Impression Clinical Impression: Calcific tendinitis of left lower leg, Peripheral neurogenic pain - Disposition Referrals: Joey Morales MD [Staff Provider] - Disposition: Routine/Home Disposition Time: 12:16 Condition: STABLE Additional Instructions: TAKE TYLENOL NEEDED FOR PAIN. Instructions: Tendonitis, Neuropathic Pain Forms: [facility] (Hungarian)
--- NOTE | 2018-04-18 11:54 | US ---
Date of service: 04/18/2018 PROCEDURE: Bilateral lower extremity venous duplex Doppler. HISTORY: BLE pain COMPARISON: None available. TECHNIQUE: Bilateral common femoral, superficial femoral, popliteal and posterior tibial veins were evaluated. Flow was assessed with color Doppler, compressibility, assessment of phasic flow and augmentation response. FINDINGS: COMMON FEMORAL VEIN: Right CFV: Unremarkable. Left CFV: Unremarkable. SUPERFICIAL FEMORAL VEIN: Right SFV: Unremarkable. Left SFV: Unremarkable. POPLITEAL VEIN: Right Popliteal: Unremarkable. Left Popliteal: Unremarkable. POSTERIOR TIBIAL VEIN: Right PTV: Unremarkable. Left PTV: Unremarkable. OTHER FINDINGS: There is a 10.5 x 6.7 x 1.9 cm ovoid anechoic mass in the medial aspect of the left distal thigh extending to just below the knee. IMPRESSION: No evidence of deep venous thrombosis. 10.5 x 6.7 x 1.9 cm cystic structure in the medial aspect of the left distal thigh extending to be lower than may represent fluid collection or chronic hematoma. Clinical correlation and follow-up is advised. If clinically indicated, correlation with MRI may be performed on a non emergent basis for further evaluation.
--- NOTE | 2018-04-18 11:56 | RAD ---
PROCEDURE: Right Hip Radiographs. HISTORY: Pain COMPARISON: None. FINDINGS: BONES: Bone alignment and mineralization are normal. There is no acute displaced fracture or bone destruction. JOINTS: Normal. SOFT TISSUES: There are multi lobular calcifications superior and lateral to the right greater trochanter. OTHER FINDINGS: Atherosclerotic vascular calcifications are present. IMPRESSION: No acute fracture or dislocation. Lobular calcifications superior and lateral to the right greater trochanter may represent Calcific tendinitis/ trochanteric bursitis.
[2018-04-18 12:41] VITALS: BP 145/88; PULSE 80; RESP 18
[2018-04-18 12:42] VITALS: O2SAT 96
== END 2018-04-18 11:50 | disposition home or self-care (01) ==
LOC: H.ER 10:07
DX: M65.252 Calcific tendinitis, left thigh (principal); G89.29 Other chronic pain; E78.00 Pure hypercholesterolemia, unspecified; I10 Essential (primary) hypertension; Z95.1 Presence of aortocoronary bypass graft; Z95.5 Presence of coronary angioplasty implant and graft